=== PATIENT | male | born 1985 | race Caucasian/White ===

== ENCOUNTER 2017-09-14 16:22 | Emergency (ER) | payer MEDICAID ==
[~2017-09-14] VITALS: Ht 162.6 cm; Wt 68.0 kg
[2017-09-14 16:27] VITALS: BP 133/70
[2017-09-14] MEDS ORDERED: PRED10TA PO (16:37)
== END 2017-09-14 16:45 | disposition home or self-care (01) ==
LOC: ER 16:22
DX: L23.7 Allergic contact dermatitis due to plants, except food (principal); Z79.899 Other long term (current) drug therapy
CPT/HCPCS: 99283